=== PATIENT | female | born 1980 | race Hispanic/Latino ===

== ENCOUNTER 2021-02-16 04:08 | Emergency (ER) | payer OTHER ==
[~2021-02-16] VITALS: Ht 162.6 cm; Wt 49.9 kg
[2021-02-16] MEDS ORDERED: LOPERAMIDE HCL 2 MG CAP PO ONE (04:30)
[2021-02-16] MEDS ORDERED: 0.9%NACL 1000ML 1,000 ML IV ONE (04:30)
[2021-02-16] MEDS ORDERED: ONDANSETRON 4MG INJ IVP ONE (04:30)
[2021-02-16 04:42] LABS: BASOPHILS % (AUTO) 0.1 % (0.0-5.0); EOSINOPHILS % (AUTO) 0.9 % (0.0-8.0); HEMATOCRIT 32.6 % (36-48); MEAN CORPUSCULAR HEMOGLOBIN 27.8 pg (27.0-33.0); MEAN CORPUSCULAR HGB CONC 32.8 g/dL (32.0-36.0); MEAN CORPUSCULAR VOLUME 84.7 fL (79-99); MONOCYTES % (AUTO) 4.3 % (3.0-13.0); NEUTROPHILS % (AUTO) 86.3 % (40.0-77.0); PLATELET COUNT (AUTO) 225 K/uL (130-400); RED BLOOD CELL COUNT(AUTO) 3.85 MIL/uL (4.00-5.50); RED CELL DISTRIBUTION WIDTH 13.3 % (11.0-15.5); WHITE BLOOD COUNT (AUTO) 9.6 K/uL (4.8-10.8)
[2021-02-16 04:44] LABS: APPEARANCE,URINE Cloudy (CLEAR); BILIRUBIN,URINE Negative (NEGATIVE); COLOR,URINE Yellow (YELLOW); GLUCOSE, URINE (UA) Negative (NEGATIVE); KETONES,URINE Negative (NEGATIVE); LEUKOCYTE ESTERASE ,URINE Moderate (NEGATIVE); NITRATE,URINE Negative (NEGATIVE); OCCULT BLOOD,URINE Small (NEGATIVE); PROTEIN,URINE Negative (NEGATIVE)
[2021-02-16 04:46] LABS: HCG,QUAL RESULT NEGATIVE (NEGATIVE)
[2021-02-16 04:51] LABS: CREATININE 0.7 mg/dL (0.5-1.5); POTASSIUM 3.5 mmol/L (3.5-5.1)
[2021-02-16] MEDS: DICYCLOMINE HCL 20 MG TAB PO SCH ×2 (04:55→06:00)
[2021-02-16 04:56] LABS: BACTERIA,URINE Rare /HPF (None Seen); MUCUS,URINE Rare LPF (None Seen); RBC,URINE 0-1 /HPF (0-1); SQUAMOUS EPITHELIAL CELL,UR Moderate /HPF (0-2)
[2021-02-16 04:58] LABS: ALBUMIN 3.2 g/dL (3.5-5.0); BILIRUBIN,TOTAL 0.5 mg/dL (0.2-1.0); TOTAL PROTEIN, SERUM 6.5 g/dL (6.0-8.3)
[2021-02-16 05:26] VITALS: BP 111/71
[2021-02-16] MEDS ORDERED: LOPE2CAP PO (05:54)
[2021-02-16] MEDS ORDERED: ONDA4TAB10 PO (05:54)
== END 2021-02-16 06:09 | disposition home or self-care (01) ==
LOC: EDH 04:08
DX: K52.9 Noninfective gastroenteritis and colitis, unspecified (principal); F17.200 Nicotine dependence, unspecified, uncomplicated; Z79.899 Other long term (current) drug therapy
CPT/HCPCS: 36415; 80053; 81001; 81025; 85025; 87077; 87088; 87186; 96361; 96374; 99283; J2405; J7030

== ENCOUNTER 2021-04-29 21:49 | Emergency (ER) | payer OTHER ==
[~2021-04-29] VITALS: Ht 154.9 cm; Wt 52.6 kg
[~2021-04-29 21:49] MED LIST: LOPE2CAP PO; ONDA4TAB10 PO
[2021-04-29 22:26] VITALS: BP 111/82
[2021-04-29 22:42] LABS: INFLUENZA TYPE A NEGATIVE FOR TYPE A (NEG); INFLUENZA TYPE B NEGATIVE FOR TYPE B (NEG)
[2021-04-29] MEDS ORDERED: DIPH1POW20 PO (22:56)
[2021-04-29] MEDS ORDERED: NIRM1TAB PO (22:56)
== END 2021-04-29 23:11 | disposition home or self-care (01) ==
LOC: EDH 21:49
DX: U07.1 COVID-19 (principal); F17.200 Nicotine dependence, unspecified, uncomplicated; Z79.899 Other long term (current) drug therapy
CPT/HCPCS: 87635; 87804 ×2; 99283; C9803

== ENCOUNTER 2023-08-01 16:57 | Emergency (ER) | payer OTHER ==
[~2023-08-01] VITALS: Ht 160 cm; Wt 68.0 kg
[~2023-08-01 16:57] MED LIST changes: +DIPH1POW20 PO; +NIRM1TAB PO
[2023-08-01] MEDS ORDERED: MOXIOS OD (17:45)
[2023-08-01 17:58] VITALS: BP 118/78; PULSE 78; RESP 16; O2SAT 97
== END 2023-08-01 18:00 | disposition home or self-care (01) ==
LOC: EDH 16:57
DX: H10.89 Other conjunctivitis (principal); F17.200 Nicotine dependence, unspecified, uncomplicated

== ENCOUNTER 2024-11-20 14:22 | Emergency (ER) | payer SELFPAY ==
[~2024-11-20] VITALS: Ht 162.6 cm; Wt 66.8 kg
[~2024-11-20 14:22] MED LIST changes: +MOXIOS OD; +ONDA-243 PO; -ONDA4TAB10 PO
--- NOTE | 2024-11-20 14:30 | ERN ---
ED Note History of Present Illness Stated Complaint: VAGINAL BLEEDING Chief Complaint: Vaginal Problems/Bleeding Time Seen by MD: 14:25 Dictation: PATIENT IS A 37-YEAR-OLD FEMALE COMING IN TODAY WITH COMPLAINTS OF PELVIC PAIN AND PAINFUL MENSTRUATION ONSET WAS THIS MORNING. SHE STATES THE PAIN WAS THIS MORNING HOWEVER SHE STARTED HER PERIOD YESTERDAY. TWO PARA TWO PATIENT OF DR. ROSS. DENIES AT THIS TIME. Allergies: Coded Allergies: No Known Drug Allergies (Unverified Allergy, Unknown, 02/16/21) Home Meds Active Scripts Moxifloxacin HCl (Vigamox 0.5% Ophth Soln) 0.5 % Opsol, 1 DROP OD TID for 7 Days, #3 ML 1 drop left eye 3 times for 7 days. Good handwashing after using drops. Prov:DORIS ROWAN NP 08/01/23 Nirmatrelvir/Ritonavir (Paxlovid Co-Pack (Eua)) 1 Each Tablet, 1 EACH PO BID for 5 Days, #10 TAB 0 Refills Prov:HUGO CASIANO MD 04/29/21 Diphenhydra/Phenyleph/Acetamin (Theraflu Severe Cold & Cough) 1 Each Powd.pack, 1 EACH PO TID, #30 0 Refills Prov:HUGO CASIANO MD 04/29/21 Loperamide HCl (Loperamide) 2 Mg Capsule, 2 MG PO TID for loose stool for 5 Days, #15 CAP 0 Refills Prov:MARTHA CHILDRESS MD 02/16/21 Ondansetron (Ondansetron Odt) 4 Mg Tab.rapdis, 4 MG PO TID for nausea for 5 Days, #15 TAB 0 Refills Prov:MARTHA CHILDRESS MD 02/16/21 Past Medical History Past Medical History: No Pertinent History Surgical History: None Family History: Negative Social History: Smokers, Drugs History: Not Applicable RN Note Reviewed/Agreed w/PFSH: Yes Review of System Dictation CONSTITUTIONAL: NEGATIVE EXCEPT FOR HPI HEAD/FACE: NEGATIVE EXCEPT FOR HPI EENT: NEGATIVE EXCEPT FOR HPI RESPIRATORY: NEGATIVE EXCEPT FOR HPI GASTROINTESTINAL/ABDOMINAL: NEGATIVE EXCEPT FOR HPI GENITOURINARY: NEGATIVE EXCEPT FOR HPI VAGINAL BLEEDING WITH PELVIC PAIN MUSCULOSKELETAL: NEGATIVE EXCEPT FOR HPI INTEGUMENTARY: NEGATIVE EXCEPT FOR HPI NEUROLOGICAL/PSYCH: NEGATIVE EXCEPT FOR HPI HEMATOLOGIC/LYMPHATIC: NEGATIVE EXCEPT FOR HPI ALL SYSTEMS NEGATIVE, EXCEPT NOTED ABOVE. 13 POINT REVIEW OF SYSTEMS ASSESSED AND ALL NEGATIVE EXCEPT FOR ABOVE. Initial Vital Sign VS Vital Signs Date Time Temp Pulse Resp B/P (MAP) Pulse Ox O2 Delivery O2 Flow Rate FiO2 11/20/24 14:23 97.0 84 20 101/72 99 0 Physical Exam Dictation VITAL SIGNS REVIEWED GENERAL APPEARANCE: ALERT, ORIENTED X 3, MODERATE ACUTE DISTRESS, WELL DEVELOPED, NOURISHED. HEAD AND FACE: NON-TRAUMATIC. EYES: PERRL, PINK CONJUNCTIVAS, EYELID NO TRAUMA, ANTERIOR CHAMBER WITH ARCUS SENILIS. EARS: PINNAS INTACT AND NO SIGNS OF TRAUMA OR ERYTHEMA EAR CANALS CLEAR AND NO DISCHARGE TM NO ERYTHEMA NOSE: NO DISCHARGE, NO BLEEDING. OROPHARYNX: MOUTH NORMAL, TONGUE PINK, PHARYNX CLEAR,NO ERYTHEMA, TONSILS NO EXUDATES, NO ABSCESSES NOTED, MUCOUS MEMBRANE MOIST NECK: SUPPLE, NON-TENDER, NO THYROMEGALY, NO MASSES, NO JVD, NO BRUITS BREAST:DEFERRED CHEST:NO TENDERNESS, NO CREPITUS, NO PARADOXICAL MOVEMENT, NO RETRACTIONS LUNGS:CLEAR, WELL-VENTILATED, SYMMETRIC, NO RALES, NO WHEEZING, NO RHONCHI, NO STRIDOR, GOOD BREATH SOUNDS BILATERALLY HEART: REGULAR RATE, REGULAR RHYTHM, NO MURMUR, NO GALLOPS VASCULAR: NO PERIPHERAL EDEMA, ABDOMEN: SOFT, POSITIVE BOWEL SOUNDS, NONDISTENDED, NO GUARDIN SUPRAPUBIC TENDERNESS WITH PALPATION, NO REBOUND, NO MASSES NO HEPATOMEGALY, NO SPLENOMEGALY, NO FOWLER'S SIGN, NO HERNIAS. RECTAL: DEFERRED GENITAL: DEFERRED NEUROLOGICAL: NORMAL SPEECH, MOTOR FUNCTION INTACT, SENSORY FUNCTION INTACT MUSCULOSKELETAL: NECK NONTENDER, FULL RANGE OF MOTION, BACK NONTENDER, FULL RANGE OF MOTION, EXTREMITIES: NONTENDER, FULL RANGE OF MOTION SKIN: COLOR PINK, DRY, NO TURGOR, NO RASH, NO LACERATIONS, NO ABRASIONS, NO CONTUSIONS. LYMPHATIC: DEFERRED Results (Laboratory/Radiology) Laboratory/Radiology Laboratory Tests Test 11/20/24 14:49 White Blood Count 6.9 K/uL (4.8-10.8) Red Blood Count 3.99 MIL/uL (4.00-5.50) L Hemoglobin 10.9 g/dL (12.0-16.0) L Hematocrit 33.0 % (36-48) L Mean Corpuscular Volume 82.7 fL (79-99) Mean Corpuscular Hemoglobin 27.3 pg (27.0-33.0) Mean Corpuscular Hemoglobin Concent 33.0 g/dL (32.0-36.0) Red Cell Distribution Width 13.2 % (11.0-15.5) Platelet Count 289 K/uL (130-400) Mean Platelet Volume 10.2 fL (7.5-10.5) Immature Granulocyte % (Auto) 0.3 % (0-1) Neutrophils (%) (Auto) 69.4 % (40.0-77.0) Lymphocytes (%) (Auto) 24.9 % (21.0-51.0) Monocytes (%) (Auto) 4.2 % (3.0-13.0) Eosinophils (%) (Auto) 0.6 % (0.0-8.0) Basophils (%) (Auto) 0.6 % (0.0-5.0) Neutrophils # (Auto) 4.8 K/uL (1.8-7.7) Lymphocytes # (Auto) 1.7 K/uL (1.0-4.8) Monocytes # (Auto) 0.3 K/uL (0.1-1.0) Eosinophils # (Auto) 0.04 K/uL (0.00-0.70) Basophils # (Auto) 0.04 K/uL (0.00-0.20) Absolute Immature Granulocyte (auto 0.02 K/uL (0-1) Nucleated Red Blood Cells 0.0 % (0.0-0.19) Sodium Level 140 mmol/L (136-145) Potassium Level 3.5 mmol/L (3.5-5.1) Chloride Level 106 mmol/L (101-111) Carbon Dioxide Level 24 mmol/L (21-32) Blood Urea Nitrogen 10 mg/dL (7-18) Creatinine 0.6 mg/dL (0.5-1.0) Glomerular Filtration Rate Calc 118 mL/min (>90) Random Glucose 114 mg/dL (70-105) H Total Calcium 9.4 mg/dL (8.5-10.1) Human Chorionic Gonadotropin, Quant 1 mIU/mL (0-5) Labs Reviewed?: Yes ED Course ED Course Orders Procedure Category Date Status Time Cbc With Differential LAB 11/20/24 Complete 14:28 Hcg,Quantitative LAB 11/20/24 Complete 14:28 Basic Metabolic Panel LAB 11/20/24 Complete 14:28 Acetaminophen With PHA 11/20/24 Complete Codeine (Tylenol-Code 14:30 Current Medications Medications (Trade) Dose Ordered Sig/Emily Route PRN Reason Start Time Stop Time Status Last Admin Dose Admin Acetaminophen/ Codeine Phosphate (TYLenol-coDEINE TAB) 2 tab ONCE ONCE PO 11/20/24 14:30 11/20/24 14:31 DC 11/20/24 14:44 Vital Signs Date Time Temp Pulse Resp B/P (MAP) Pulse Ox O2 Delivery O2 Flow Rate FiO2 11/20/24 14:23 97.0 84 20 101/72 99 0 1605/PAIN IS NOW MORE MANAGED. PATIENT DISCHARGED HOME AWARE THAT SHE IS NOT AT THIS TIME DIAGNOSIS IS MENORRHAGIA. SHE WILL BE GIVEN IBUPROFEN FOR PAIN, TOLD TO SEE HER WINDOWS SERVER SUPPORT TECHNICIAN DOCTOR, DR. ROSS IN THE NEXT ONE TWO DAYS FOR MANAGEMENT. Medical Decision Making MDM MDM: DIFFERENTIAL DIAGNOSIS: ECTOPIC /A B/INCOMPLETE A B/MENORRHAGIA/METRO MENORRHAGIA/ELECTROLYTE IMBALANCE RATIONALE: TESTS CONSIDERED AND ORDERED SECONDARY TO SHARED DECISION MAKING INCLUDE:/DEHYDRATION/ANEMIA LABS PREVIOUS OUTSIDE RECORDS REVIEWED: OLD ER VISITS. RISK OF COMPLICATION AND/OR MORBIDITY OR MORTALITY OF PATIENT MANAGEMENT: NONE MEDICATIONS-PER MEDICATION RECONCILIATION NEED FOR HOSPITALIZATION: PATIENT DOES NOT MEET CRITERIA FOR HOSPITALIZATION. NONE NEED FOR EMERGENCY MAJOR/MINOR SURGERY: NO THERE ARE NO SOCIAL CONCERNS WITH THIS PATIENT. PRESCRIPTION DRUG MANAGEMENT IBUPROFEN PRESCRIPTIONS WILL INCLUDE SYMPTOMATIC CARE PATIENT'S PRIOR EXTERNAL MEDICAL RECORDS FROM OTHER ER VISITS WERE REVIEWED BY ME INDICATED. PRIOR TESTING AND RESULTS FROM PREVIOUS VISITS WERE REVIEWED. PRIOR TESTS WERE TAKEN INTO ACCOUNT WITH MEDICAL DECISION MAKING AND RESOURCE UTILIZATION, INDEPENDENT HISTORIAN/HISTORIANS WERE USED TO OBTAIN COMPLETE MEDICAL HISTORY. I INDEPENDENTLY INTERPRETED THE TEST THAT WERE PERFORMED, RESULTS WERE REVIEWED BY ME AND CONSIDERED FINDINGS ON RADIOLOGY IF ORDERED. MEDICAL MANAGEMENT AND EXAMINATION INTERPRETATION DISCUSSIONS WERE HAD BY ME WITH OTHER QUALIFIED HEALTHCARE PROFESSIONALS INDICATED FOR THE PATIENT'S CARE. DX & DISP Disposition: Discharge Departure Impression: Primary Impression: Menorrhagia Additional Impressions: Chronic anemia, Hyperglycemia Condition: Stable Scripts Ibuprofen (Ibuprofen 800 mg Tab) 800 Mg Tab 800 MG PO Q8H PRN for fever or pain, #30 TAB 0 Refills Prov: RHEINER,DORIS P OIL FIELD TECHNICIAN 11/20/24 Additional Instructions: FOLLOW-UP WITH PRIMARY CARE PROVIDER IN 1 TO 2 DAYS. TAKE MEDICATIONS DIRECTED HERE IN THE EMERGENCY ROOM. OKAY TO CONTINUE HOME MEDICATIONS UNLESS OTHERWISE DISCUSSED DURING YOUR VISIT IN THE EMERGENCY ROOM TODAY. RETURN TO YOUR NEAREST EMERGENCY ROOM IF SYMPTOMS WORSEN OR IF THERE IS NO IMPROVEMENT. CALL 911 IF YOU NEED IMMEDIATE ASSISTANCE. TAKE TYLENOL OR MOTRIN OVER-THE- COUNTER NEEDED AND IF NO CONTRAINDICATIONS ARE PRESENT. INCREASE ORAL HYDRATION. A WOUND CULTURE OR URINE CULTURE WAS ORDERED HERE IN THE EMERGENCY ROOM DEPARTMENT PLEASE FOLLOW-UP WITH PRIMARY CARE PROVIDER AND ADVISE THEM TO GET REPEAT PORTS FROM OUR FACILITY. IF YOU HAD ANY SYDNI WRAP/SPLINTS THAT WERE APPLIED HERE, PLEASE DO NOT REMOVE THEM UNTIL YOU SEE YOUR PRIMARY CARE OR SPECIALTY. TAKE IBUPROFEN DIRECTED WITH FOOD FOR PAIN. WARM COMPRESSES TO YOUR PELVIS THREE TO 4 TIMES A DAY. FOLLOW UP WITH THE YOUR WINDOWS SERVER SUPPORT TECHNICIAN DOCTOR, DR. ROSS IN THE NEXT 2-3 DAYS FOR MANAGEMENT Referrals: SELF,REFERRAL (PCP) Time of Disposition: 16:07 I have reviewed the case, and I agree with, Diagnosis and Plan DORIS ROWAN NP Nov 20, 2024 14:30
--- NOTE | 2024-11-20 14:41 | NUR ---
HELPED PT GET OUT OF BLOODY CLOTHES. SHE PUT ON A DIAPER AND NET UNDERWEAR. BLOODY CLOTHES PLACED INTO PROPERTY BAG.
[2024-11-20 14:55] VITALS: TEMP 96.9
[2024-11-20 15:06] LABS: IMMATURE GRANULOCYTE ABSOLUTE 0.02 K/uL (0-1); NUCLEATED RED BLOOD CELLS 0.0 % (0.0-0.19); PLATELET COUNT (AUTO) 289 K/uL (130-400); RED BLOOD CELL COUNT(AUTO) 3.99 MIL/uL (4.00-5.50); RED CELL DISTRIBUTION WIDTH 13.2 % (11.0-15.5); WHITE BLOOD COUNT (AUTO) 6.9 K/uL (4.8-10.8)
[2024-11-20 15:22] LABS: CREATININE 0.6 mg/dL (0.5-1.0); GLOMERULAR FILTR. RATE CALC 118.0 mL/min (>90); GLUCOSE,RANDOM 114.0 mg/dL (70-105); SODIUM SERUM 140.0 mmol/L (136-145); UREA NITROGEN, BLOOD 10.0 mg/dL (7-18)
[2024-11-20 15:34] LABS: HCG,QUANTITATIVE 1.0 mIU/mL (0-5)
[2024-11-20] MEDS ORDERED: IBUP-2077 PO (16:07)
[2024-11-20 16:12] VITALS: BP 105/60; PULSE 69; RESP 16; O2SAT 100
== END 2024-11-20 16:26 | disposition home or self-care (01) ==
LOC: EDH 14:22
DX: N92.0 Excessive and frequent menstruation with regular cycle (principal); D64.9 Anemia, unspecified; R73.9 Hyperglycemia, unspecified; F17.200 Nicotine dependence, unspecified, uncomplicated
CPT/HCPCS: 36415; 80048; 84702; 85025; 99283